=== PATIENT | female | born 1990 | race Caucasian/White ===

== ENCOUNTER 2016-09-22 09:19 | Emergency (ER) | payer OTHER ==
[2016-09-22 09:32] VITALS: BP 124/75; PULSE 112; BMI 32.8
[2016-09-22] MEDS ORDERED: ACETAMINOPHEN 500 MG TABLET (FP) PO ONE (09:44)
[2016-09-22 10:46] LABS: MCH 27.5 pg (25.7-33.7); MCHC 32.5 g/dl (32.0-36.0); MEAN CELL VOLUME 84.5 fl (80-96); MEAN PLT VOLUME 8.1 fl (7.5-11.1); PLATELET COUNT 203 K/MM3 (134-434); RDW 14.1 % (11.6-15.6); WHITE BLOOD COUNT 20.6 K/mm3 (4.0-10.0)
[2016-09-22 10:50] LABS: URINE APPEARANCE CLEAR; URINE BILIRUBIN NEGATIVE (NEGATIVE); URINE COLOR YELLOW; URINE GLUCOSE (UA) NEGATIVE (NEGATIVE); URINE KETONE TRACE (NEGATIVE); URINE NITRITE NEGATIVE (NEGATIVE); URINE UROBILINOGEN 2.0 E.U/dl E.U./dl (0.2-1.0)
[2016-09-22 10:59] LABS: URINE BLOOD 3+ (NEGATIVE); URINE LEUK ESTERASE 1+ (NEGATIVE); URINE PROTEIN 1+ (NEGATIVE)
[2016-09-22] MEDS ORDERED: CEFTRIAXONE 2 GM in DEXTROSE 5%-WATER - 100 ML IVPB ONE (11:00)
--- NOTE | 2016-09-22 11:00 | PDOC ---
History of Present Illness - General Chief Complaint: SIRS, Suspected/Possible Stated Complaint: FEVER Time Seen by Provider: 09/22/16 09:50 History Source: Patient Exam Limitations: No Limitations - History of Present Illness Initial Comments: 09/22/16 11:01 25 yr female with c/o fever, body aches for 3 days . Pt c/o sore throat and neck pain. Pt denies any abd pain vaginal bleeding , no back pain or urinary dyscomfort. Pt has a history of "thyroid swelling" not on any meds. Possible Cause: Yes: no prior episodes Associated Symptoms: reports: fever/chills, muscle aches Past History - Past Medical History Allergies/Adverse Reactions: Allergies Allergy/AdvReac Type Severity Reaction Status Date / Time No Known Allergies Allergy Verified 09/22/16 09:32 Home Medications: Ambulatory Orders Penicillin V Potassium [Pen Vee K -] 500 mg PO BID #20 tablet 09/22/16 Asthma: No Cancer: No Cardiac Disorders: No Diabetes: No HTN: No Seizures: No Thyroid Disease: No Other medical history: denies - Reproductive History (#): 3 Para: 2 Spontaneous : 0 - Psycho/Social/Smoking Cessation Hx Anxiety: No Suicidal Ideation: No Smoking History: Never smoked Have you smoked in the past 12 months: No Information on smoking cessation initiated: No Hx Alcohol Use: No Drug/Substance Use Hx: No Substance Use Type: None Hx Substance Use Treatment: No Respiratory Specific PMHX - Complaint Specific PMHX Angina: No Bronchitis: No Pneumonia: No Pulmonary Embolus: No TB (Tuberculosis): No Review of Systems - Review of Systems Able to Perform ROS?: Yes Is the patient limited Italian proficient: No Constitutional: Yes: Fever HEENTM: Yes: Throat Pain Respiratory: No: Symptoms reported Cardiac (ROS): No: Symptoms Reported ABD/GI: No: Symptoms Reported : No: Symptoms Reported Musculoskeletal: Yes: Symptoms Reported, See HPI Integumentary: No: Symptoms Reported Neurological: Yes: Headache *Physical Exam - Vital Signs Last Vital Signs Temp Pulse Resp BP Pulse Ox 103 F H 112 H 20 124/75 99 09/22/16 09:29 09/22/16 09:29 09/22/16 09:29 09/22/16 09:29 09/22/16 09:29 - Physical Exam General Appearance: Yes: Nourished, Appropriately Dressed HEENT: positive: EOMI, [place], Pharyngeal Erythema Neck: positive: Supple, Tender lateral (right side lateral ). negative: Rigidity, Tender midline Respiratory/Chest: positive: Lungs Clear, Normal Breath Sounds Cardiovascular: positive: Regular Rhythm, Regular Rate Gastrointestinal/Abdominal: positive: Normal Bowel Sounds, Soft Musculoskeletal: positive: Normal Inspection. negative: CVA Tenderness, CVA Tenderness (R), CVA Tenderness (L), Muscle Spasm, Vertebral Tenderness Extremity: positive: Normal Capillary Refill, Normal Inspection, Normal Range of Motion Integumentary: positive: Normal Color, Dry, Warm Neurologic: positive: Fully Oriented, Alert, Normal Mood/Affect, Normal Response , Motor Strength 08/12 ED Treatment Course - LABORATORY CBC & Chemistry Diagram: 09/22/16 10:13 09/22/16 10:13 - ADDITIONAL ORDERS Additional order review: Laboratory Results 09/22/16 10:25 Urine HCG, Qual Negative 09/22/16 10:13 RBC 4.65 MCV 84.5 MCHC 32.5 RDW 14.1 MPV 8.1 Neutrophils % Y Lymphocytes % Y - Medications Given in the ED: ED Medications Discontinued Medications Generic Name Dose Route Start Last Admin Trade Name Freq PRN Reason Stop Dose Admin Acetaminophen 975 mg 09/22/16 09:44 09/22/16 09:44 Tylenol - PO 09/22/16 09:45 975 mg NOW ONE Administration Medical Decision Making - Medical Decision Making 09/22/16 11:06 cc: fever, body aches, sore throat, neck pain started 3 days ago no vomiting no urinary complaints will check labs, ua, rapid strep, fluids 09/22/16 12:00 pt feels better after tylenol and fluids temp 98.0 09/22/16 12:07 positive strep will treat with antibiotics pt resting comfortably 09/22/16 12:59 temp 98.9 HR 70 RR 20 pt feels better no distress. pt is drinking well no distress. dc home with strict follow up with her PMD. pt understands the dc instructions and all questions have been asked and answered. 09/22/16 13:57 *DC/Admit/Observation/Transfer Diagnosis at time of Disposition: Strep pharyngitis - Discharge Dispostion Disposition: HOME Condition at time of disposition: Improved - Prescriptions Prescriptions: Penicillin V Potassium [Pen Vee K -] 500 mg PO BID #20 tablet - Referrals Referrals: Nicolasa Robin [Primary Care Provider] - Alvin Belcher MD [Staff Physician] - - Patient Instructions Additional Instructions: drink pleanty of fluids to stay hydrated wear a mask at home around your children, do not share cups,utensils saliva take motrin 800mg every 6hrs for fever or pain take the Penvk as directed follow with the ENT if not improving
[2016-09-22 11:05] LABS: INR 1.24 (0.82-1.09); PROTHROMBIN TIME (PATIENT) 13.7 SEC (9.98-11.88)
[2016-09-22 11:07] LABS: ACTIVATED PTT 28.2 SECONDS (26.9-34.4)
[2016-09-22] MEDS ORDERED: KETOROLAC TROMETHAMINE 30 MG/1 ML VIAL IVPUSH ONE (11:09)
[2016-09-22] MEDS ORDERED: CEFTRIAXONE 100 ML IVPB ONE (11:15)
[2016-09-22 11:19] LABS: CREATININE 0.6 mg/dL (0.55-1.02); GLUCOSE,RANDOM 88 mg/dL (74-106)
[2016-09-22 11:21] LABS: ALBUMIN 3.7 g/dl (3.4-5.0); ANION GAP 9 (8-16); CALCIUM 8.8 mg/dL (8.5-10.1); CO2 25 mmol/L (21-32)
[2016-09-22 11:22] LABS: BILIRUBIN,TOTAL 0.7 mg/dL (0.2-1.0); SGOT/AST 11 U/L (15-37); SGPT/ALT 14 U/L (12-78)
[2016-09-22 11:23] LABS: ALK PHOS 65 U/L (45-117)
[2016-09-22 11:25] LABS: URINE MUCUS RARE; URINE RBC 44 /hpf (0-3); URINE WBC 6 /hpf (3-5)
[2016-09-22] MEDS ORDERED: KETOROLAC TROMETHAMINE 30 MG/1 ML VIAL ONE (11:26)
[2016-09-22 11:41] LABS: PLATELET ESTIMATE ADEQUATE (NORMAL)
[2016-09-22] MEDS ORDERED: SODIUM CHLORIDE 1,000 ML IV STA (12:06)
[2016-09-22 13:56] VITALS: TEMP 98.6
[2016-09-23 06:06] LABS: FREE T3 2.2 pg/mL (2.0-4.4)
== END 2016-09-22 13:15 | disposition home or self-care (01) ==
LOC: JER 09:19 → JERFT 09:19
PROC: 3E03329 Introduction of Other Anti-infective into Peripheral Vein, Percutaneous Approach (ICD-10-PCS; principal; 2016-09-22)
PROC: 3E0333Z Introduction of Anti-inflammatory into Peripheral Vein, Percutaneous Approach (ICD-10-PCS; 2016-09-22)
PROC: 3E0337Z Introduction of Electrolytic and Water Balance Substance into Peripheral Vein, Percutaneous Approach (ICD-10-PCS; 2016-09-22)
DX: J02.0 Streptococcal pharyngitis (principal)
CPT/HCPCS: 36415; 80053; 81003; 81015; 83605; 84439; 84443; 84481; 84703; 85025; 85610; 85730; 87040; 87070; 87086; 87430; 99282-25